=== PATIENT | male | born 1990 | race African-American/Black ===

== ENCOUNTER 2017-06-05 19:04 | Emergency (ER) | payer OTHER ==
[2017-06-05 19:10] VITALS: BP 141/70; PULSE 104; RESP 20; TEMP 98.8
--- NOTE | 2017-06-05 20:42 | ED ---
General Adult HPI - General Chief complaint: Skin/Abscess/Foreign Body Stated complaint: bug bite Time Seen by Provider: 06/05/17 19:10 Source: patient, RN notes reviewed Mode of arrival: ambulatory Limitations: no limitations - History of Present Illness Initial comments: This is a 27 her old male who presents to the emergency department with a raised hard area on the right buttocks. Patient states it started as a small bump on Tuesday and has gotten progressively worse until today where it is much larger and much harder and more painful. Patient denies any fever. Patient denies any erythematous skin. Patient denies any cuts to that area. Patient denies shaving that area. Patient states she's not had this before. Patient denies any history of MRSA. - Related Data Previous Rx's Medication Instructions Recorded Sulfamethox-Tmp 800-160Mg [Bactrim 2 each PO Q12HR #40 tab 06/05/17 DS 800-160 mg] Allergies Allergy/AdvReac Type Severity Reaction Status Date / Time Iodinated Contrast- Oral and Allergy Unknown Verified 06/05/17 20:20 IV Dye Review of Systems ROS Statement: Those systems with pertinent positive or pertinent negative responses have been documented in the HPI. ROS Other: All systems not noted in ROS Statement are negative. Past Medical History Past Medical History: No Reported History Additional Past Medical History / Comment(s): kidney stones History of Any Multi-Drug Resistant Organisms: MRSA Date of last positivie culture/infection: 10/08/2015 MDRO Source:: AXILLA LEFT Past Surgical History: Hernia Repair Additional Past Surgical History / Comment(s): hernia repair x2 Past Psychological History: No Psychological Hx Reported Smoking Status: Current every day smoker Past Alcohol Use History: Occasional Past Drug Use History: None Reported General Exam - General Exam Comments Initial Comments: GENERAL Patient is well-developed and well-nourished. Patient is in mild distress. EYES Patient's pupils are equal and round. Extraocular motion is intact SKIN There is an abscess on the medial aspect of the left buttocks NEURO The patient is alert and oriented 3 PYSCH Patient has normal interpersonal interactions. MUSCULOSKELETAL Limitations: no limitations Course Vital Signs 06/05/17 19:09 Temperature 98.8 F Pulse Rate 104 H Respiratory 20 Rate Blood Pressure 141/70 O2 Sat by Pulse 99 Oximetry Procedures - Incision & Drainage Consent Obtained: verbal consent Time Out Performed?: Yes Site: buttock, other Anesthetic Used: lidocaine 1% I&D Cleaning Method: Chloroprep Sterile Field Used?: Yes Scalpel Used: #11 Irrigation Performed?: Yes I&D Drainage Obtained: Pus Culture Obtained?: No Complications: pain, bleeding Patient Tolerated Procedure: well Disposition Clinical Impression: Abscess of buttock Disposition: HOME SELF-CARE Condition: Good Instructions: Abscess Incision and Drainage (ED) Prescriptions: Sulfamethox-Tmp 800-160Mg [Bactrim DS 800-160 mg] 2 each PO Q12HR #40 tab Referrals: Isael Godwin MD [Primary Care Provider] - 1-2 days Time of Disposition: 20:42
== END 2017-06-05 20:48 | disposition home or self-care (01) ==
LOC: EC 19:04
DX: L02.31 Cutaneous abscess of buttock (principal); F17.200 Nicotine dependence, unspecified, uncomplicated; Z91.041 Radiographic dye allergy status
CPT/HCPCS: 10060; 99282

== ENCOUNTER 2020-11-23 16:51 | Emergency (ER) | payer OTHER ==
[2020-11-23 16:57] VITALS: BP 117/72; PULSE 85; RESP 20; TEMP 98.7
--- NOTE | 2020-11-23 17:18 | ED ---
ENT HPI - General Chief complaint: ENT Stated complaint: Throat infection Time Seen by Provider: 11/23/20 16:57 Source: patient Mode of arrival: ambulatory Limitations: no limitations - History of Present Illness Initial comments: Patient is a 30-year-old male presenting to the emergency Department with complaints of a sore throat over the past week. Patient states he noticed that his lymph nodes on either side were also slightly enlarged. He denies any fever or chills, no nasal congestion, no ear pain, no abdominal pain or nausea or vomiting. No chest pain, shortness of breath, no trouble breathing. Patient states his regular doctor moved to [place] so he does not have a current PCP. He has no pertinent past medical history, takes no medications. He has no further complaints at this time. Upon arrival to the ER, his vital signs are stable. - Related Data Previous Rx's Medication Instructions Recorded Sulfamethox-Tmp 800-160Mg [Bactrim 2 each PO Q12HR #40 tab 06/05/17 DS 800-160 mg] Amoxicillin 500 mg PO BID 7 Days #14 capsule 11/23/20 Allergies Allergy/AdvReac Type Severity Reaction Status Date / Time Iodinated Contrast Media Allergy Unknown Verified 11/23/20 16:57 [Iodinated Contrast- Oral and IV Dye] Review of Systems ROS Statement: Those systems with pertinent positive or pertinent negative responses have been documented in the HPI. ROS Other: All systems not noted in ROS Statement are negative. Past Medical History Past Medical History: No Reported History Additional Past Medical History / Comment(s): kidney stones History of Any Multi-Drug Resistant Organisms: MRSA Date of last positivie culture/infection: 10/08/2015 MDRO Source:: AXILLA LEFT Past Surgical History: Hernia Repair Additional Past Surgical History / Comment(s): hernia repair x2 Past Psychological History: No Psychological Hx Reported Smoking Status: Never smoker Past Alcohol Use History: Occasional Past Drug Use History: Marijuana General Exam - General Exam Comments Initial Comments: GENERAL: Patient is well-developed and well-nourished. Patient is nontoxic and in no acute distress. HEAD: Atraumatic, normocephalic. EYES: Pupils equal round and reactive to light, extraocular movements intact, sclera anicteric, conjunctiva are normal. Eyelids were unremarkable. ENT: TMs normal, nares patent, oropharynx clear without exudates, no tonsillar enlargement. Moist mucous membranes. NECK: Normal range of motion. Patient has bilateral anterior cervical lymph node enlargement, no tenderness, no overlying erythema. LUNGS: Unlabored respirations. Breath sounds clear to auscultation bilaterally and equal. No wheezes rales or rhonchi. HEART: Regular rate and rhythm without murmurs, rubs or gallops. ABDOMEN: Soft, nontender, normoactive bowel sounds. No guarding, no rebound. No masses appreciated. : Deferred MUSCULOSKELETAL: Normal extremities with adequate strength and normal range of motion, no pitting or edema. No clubbing or cyanosis. NEUROLOGICAL: Patient is alert and oriented x 3. Motor and sensory are also intact. Cranial nerves II through XII grossly intact. Symmetrical smile. Normal speech, normal gait. PSYCH: Normal mood, normal affect. SKIN: Warm, Dry, normal turgor, no rashes or lesions noted. Limitations: no limitations Course Vital Signs 11/23/20 16:55 Temperature 98.7 F Pulse Rate 85 Respiratory 20 Rate Blood Pressure 117/72 O2 Sat by Pulse 99 Oximetry Medical Decision Making - Medical Decision Making Patient is a 30-year-old male presenting with a sore throat for the past week. He does have some anterior cervical lymph node enlargement bilaterally. Rest of exam is unremarkable. He has no fevers, his vital signs are stable. Patient has no pertinent past medical history. I discussed with patient and we can start him on a short course of antibiotics for possible bacterial source. Otherwise recommend following up with his PCP. Recommend ibuprofen for discomfort and swelling. Patient is stable for discharge. Patient is in agreement with this plan of care. Return parameters were discussed with the patient and they verbalized understanding. Case discussed with Dr. Tran. Disposition Clinical Impression: Sore throat, Lymphadenopathy Disposition: HOME SELF-CARE Condition: Stable Instructions (If sedation given, give patient instructions): Lymphadenopathy (ED) Additional Instructions: Please return to the Emergency Department if symptoms worsen or any other concerns. Take antibiotic as prescribed. Recommend continuing with ibuprofen for swelling and discomfort. Follow-up with your regular care physician. Prescriptions: Amoxicillin 500 mg PO BID 7 Days #14 capsule Is patient prescribed a controlled substance at d/c from ED?: No Referrals: None,Stated [Primary Care Provider] - 1-2 days Pilar Hardy MD [STAFF PHYSICIAN] - 1-2 days Shiraz Paige [STAFF PHYSICIAN] - 1-2 days Javier Butcher MD [STAFF PHYSICIAN] - 1-2 days
== END 2020-11-23 17:35 | disposition home or self-care (01) ==
LOC: EC 16:51
DX: J02.9 Acute pharyngitis, unspecified (principal); Z91.041 Radiographic dye allergy status; Z86.14 Personal history of Methicillin resistant Staphylococcus aureus infection
CPT/HCPCS: 99282

== ENCOUNTER 2020-12-31 22:07 | Emergency (ER) | payer OTHER ==
[2020-12-31 22:16] VITALS: BP 125/81; PULSE 77; RESP 18; TEMP 98.3
[2020-12-31] MEDS ORDERED: LIDOCAINE 4% CREAM 5 GM TUBE TOPICAL ONE (22:40)
[2020-12-31] MEDS ORDERED: traMADol 50 MG TAB PO STA (22:41)
[2020-12-31] MEDS ORDERED: polyethylene glycoL 3350 17 GM POWD.PACK PO STA (22:41)
[2020-12-31] MEDS ORDERED: traMADol 50 MG STARTER PACK 3 TAB BTL PO STA (22:41)
[2020-12-31] MEDS ORDERED: ACETAMINOPHEN TAB 500 MG TAB PO STA (22:42)
[2020-12-31] MEDS ORDERED: IBUPROFEN 600 MG TAB PO STA (22:42)
--- NOTE | 2020-12-31 22:44 | ED ---
Male Urogenital HPI - General Chief complaint: Urogenital Stated complaint: Male GTU Time Seen by Provider: 12/31/20 22:21 Source: patient, RN notes reviewed, old records reviewed Mode of arrival: ambulatory Limitations: no limitations - History of Present Illness Initial comments: This is a 30-year-old male DF patient Dese for evaluation regards to significant rectal pain with some occasional bleeding especially with wiping. No real history of similar thing. Patient has no other abdominal pain. No other issues no dysuria. No fevers or other complaints. Patient denies any rectal trauma MD Complaint: other (Hemorrhoids) -: days(s) Radiation: none Severity: moderate Severity scale (1-10): 6 Quality: sharp Consistency: constant Improves with: none Worsens with: bowel movement Reports: denies other symptoms - Related Data Home Medications Medication Instructions Recorded Confirmed Silvia's Hair Supplement 1 cap PO DAILY 12/31/20 12/31/20 Previous Rx's Medication Instructions Recorded Hydrocortisone [Anusol-Hc] 1 applic RECTAL BID #1 tube 12/31/20 polyethylene glycoL 3350 [Miralax] 17 gm PO DAILY #14 packet 12/31/20 Allergies Allergy/AdvReac Type Severity Reaction Status Date / Time Iodinated Contrast Media Allergy Anaphylaxis Verified 12/31/20 22:48 [Iodinated Contrast- Oral and IV Dye] Review of Systems ROS Statement: Those systems with pertinent positive or pertinent negative responses have been documented in the HPI. ROS Other: All systems not noted in ROS Statement are negative. Past Medical History Past Medical History: No Reported History Additional Past Medical History / Comment(s): kidney stones History of Any Multi-Drug Resistant Organisms: MRSA Date of last positivie culture/infection: 10/08/2015 MDRO Source:: AXILLA LEFT Past Surgical History: Hernia Repair Additional Past Surgical History / Comment(s): hernia repair x2 Past Psychological History: No Psychological Hx Reported Smoking Status: Never smoker Past Alcohol Use History: None Reported Past Drug Use History: None Reported General Exam Limitations: no limitations General appearance: alert, in no apparent distress Head exam: Present: atraumatic, normocephalic, normal inspection Eye exam: Present: normal appearance, PERRL, EOMI. Absent: scleral icterus, conjunctival injection, periorbital swelling ENT exam: Present: normal exam, mucous membranes moist Neck exam: Present: normal inspection. Absent: tenderness, meningismus, lymphadenopathy Respiratory exam: Present: normal lung sounds bilaterally. Absent: respiratory distress, wheezes, rales, rhonchi, stridor Cardiovascular Exam: Present: regular rate, normal rhythm, normal heart sounds. Absent: systolic murmur, diastolic murmur, rubs, gallop, clicks GI/Abdominal exam: Present: soft, normal bowel sounds. Absent: distended, tenderness, guarding, rebound, rigid Rectal exam: Present: hemorrhoids Extremities exam: Present: normal inspection, full ROM, normal capillary refill. Absent: tenderness, pedal edema, joint swelling, calf tenderness Back exam: Present: normal inspection Neurological exam: Present: alert, oriented X3, CN II-XII intact Psychiatric exam: Present: normal affect, normal mood Skin exam: Present: warm, dry, intact, normal color. Absent: rash Course Vital Signs 12/31/20 22:10 Temperature 98.3 F Pulse Rate 77 Respiratory 18 Rate Blood Pressure 125/81 O2 Sat by Pulse 98 Oximetry - Reevaluation(s) Reevaluation #1: Medical record is reviewed Patient no distress here in the ER is improved Spoke with patient regarding findings, questions are answered Medical Decision Making - Medical Decision Making 30 male to the ER no significant current bleeding, pain is improved here with treatment in the ER can be discharged home for evaluation, patient having significant pain. Positive hemorrhoids. Disposition Clinical Impression: Hemorrhoids Disposition: HOME SELF-CARE Condition: Good Instructions (If sedation given, give patient instructions): Hemorrhoids (ED) Prescriptions: Hydrocortisone [Anusol-Hc] 1 applic RECTAL BID #1 tube polyethylene glycoL 3350 [Miralax] 17 gm PO DAILY #14 packet Is patient prescribed a controlled substance at d/c from ED?: No Referrals: Isael Godwin MD [Primary Care Provider] - 1-2 days
== END 2020-12-31 23:10 | disposition home or self-care (01) ==
LOC: EC 22:07
DX: K64.9 Unspecified hemorrhoids (principal); Z87.442 Personal history of urinary calculi
CPT/HCPCS: 99283

== ENCOUNTER 2021-01-15 06:58 | Emergency (ER) | payer OTHER ==
[2021-01-15 07:06] VITALS: BP 123/82; PULSE 68; RESP 18; TEMP 97.8
--- NOTE | 2021-01-15 07:34 | ED ---
General Adult HPI - General Chief complaint: GI Bleed Stated complaint: Hemorrhoids Time Seen by Provider: 01/15/21 07:10 Source: patient, RN notes reviewed Mode of arrival: ambulatory Limitations: no limitations - History of Present Illness Initial comments: 30-year-old male presents emergency Department with chief complaint of rectal bleeding. Patient states she was seen here recently diagnosed with internal hemorrhoids. Patient states she's been using his Anusol states that it has not improved yet. Patient states he saw a little bit more bouts morning which became worrisome. Has no mental abdominal pain dizziness chest pain shortness of breath fatigue. Patient has no history of GI disorders. Patient states been having regular bowel movements. No dysuria no hematuria - Related Data Home Medications Medication Instructions Recorded Confirmed Silvia's Hair Supplement 1 cap PO DAILY 12/31/20 12/31/20 Previous Rx's Medication Instructions Recorded Hydrocortisone [Anusol-Hc] 1 applic RECTAL BID #1 tube 12/31/20 polyethylene glycoL 3350 [Miralax] 17 gm PO DAILY #14 packet 12/31/20 Hydrocortisone/Pramoxine 1 applic RECTAL BID #1 bottle 01/15/21 [Proctofoam-Hc 1%-1% Foam] Allergies Allergy/AdvReac Type Severity Reaction Status Date / Time Iodinated Contrast Media Allergy Anaphylaxis Verified 01/15/21 07:06 [Iodinated Contrast- Oral and IV Dye] Review of Systems ROS Statement: Those systems with pertinent positive or pertinent negative responses have been documented in the HPI. ROS Other: All systems not noted in ROS Statement are negative. Past Medical History Past Medical History: No Reported History Additional Past Medical History / Comment(s): kidney stones History of Any Multi-Drug Resistant Organisms: MRSA Date of last positivie culture/infection: 10/08/2015 MDRO Source:: AXILLA LEFT Past Surgical History: Hernia Repair Additional Past Surgical History / Comment(s): hernia repair x2 Past Psychological History: No Psychological Hx Reported Smoking Status: Never smoker Past Alcohol Use History: Occasional Past Drug Use History: None Reported General Exam Limitations: no limitations General appearance: alert, in no apparent distress Head exam: Present: atraumatic, normocephalic, normal inspection Neck exam: Present: normal inspection, full ROM. Absent: tenderness, meningismus, lymphadenopathy Respiratory exam: Present: normal lung sounds bilaterally. Absent: respiratory distress, wheezes, rales, rhonchi, stridor Cardiovascular Exam: Present: regular rate, normal rhythm, normal heart sounds. Absent: systolic murmur, diastolic murmur, rubs, gallop, clicks GI/Abdominal exam: Present: soft, normal bowel sounds. Absent: distended, tenderness, guarding, rebound, rigid Rectal exam: Present: other (There is noted in all fissure, no active bleeding mild tenderness exam performed with RN) Course Vital Signs 01/15/21 06:59 Temperature 97.8 F Pulse Rate 68 Respiratory 18 Rate Blood Pressure 123/82 O2 Sat by Pulse 98 Oximetry Medical Decision Making - Medical Decision Making Patient has noted anal fissure along with internal hemorrhoids. Patient will be given Proctofoam will continue x-ray and will use Tucks pads will follow-up with surgery if no improvement. Disposition Clinical Impression: Internal hemorrhoids, Anal fissure Disposition: HOME SELF-CARE Condition: Stable Instructions (If sedation given, give patient instructions): Hemorrhoids (ED) Additional Instructions: Please return to the Emergency Department if symptoms worsen or any other concerns. Prescriptions: Hydrocortisone/Pramoxine [Proctofoam-Hc 1%-1% Foam] 1 applic RECTAL BID #1 bottle Is patient prescribed a controlled substance at d/c from ED?: No Referrals: Isael Godwin MD [Primary Care Provider] - 1-2 days Sally Goff MD [STAFF PHYSICIAN] - 1-2 days Time of Disposition: 07:33
== END 2021-01-15 07:46 | disposition home or self-care (01) ==
LOC: EC 06:58
DX: K64.8 Other hemorrhoids (principal); K60.2 Anal fissure, unspecified
CPT/HCPCS: 99284

== ENCOUNTER → 2021-04-13 | Outpatient (CLI) | payer OTHER ==
[2021-04-13 20:30] LABS: HCT 44.2 % (39.6-50.0); HGB 14.6 g/dL (13.0-17.0); MCH 30.7 pg (27.0-32.0); MCV 93.1 fL (80.0-97.0); Mean Platelet Volume 12.5 fL (9.5-12.2); Platelet Count 190 X 10*3/uL (140-440); RBC 4.75 X 10*6/uL (4.40-5.60); RDW 12.4 % (11.5-14.5)
[2021-04-13 23:34] LABS: Mumps Virus IgG Ab Interp NEGATIVE (NEGATIVE); Mumps Virus IgG Antibody 0.6 AI
[2021-04-14 02:42] LABS: HIV 2 AB Non-Reactive (Non-Reactive); HIV AB P24 REACTIVE (Non-Reactive); HIV P24 AG Non-Reactive (Non-Reactive)
[2021-04-14 12:17] LABS: T Helper Cell (CD4) 92 cell/ul (443-1471); T Helper Cell (CD4) % 7 % (35-66); T Suppressor Cell (CD8) 942 cell/ul (190-832); T Suppressor Cell (CD8) % 72 % (9-37); T4/T8 Ratio (CD4:CD8) <0.1 (1.0-3.7)
[2021-04-15 22:03] LABS: Mumps Virus IgM Antibody 0.52 IV (<=0.79)
[2021-04-16 06:45] LABS: HIV1D REACTIVE
[2021-04-16 06:46] LABS: HIV2D NONREAC
== END | disposition home or self-care (01) ==
LOC: LABWHC1 13:39
PROVIDERS: ATTEND Internal Medicine
DX: B20 Human immunodeficiency virus [HIV] disease (principal); R59.1 Generalized enlarged lymph nodes
CPT/HCPCS: 36415; 82150; 85027; 86308; 86360; 86644; 86645; 86735; 87389; 87390

== ENCOUNTER 2022-04-29 08:17 | Emergency (ER) | payer OTHER ==
[2022-04-29 08:21] VITALS: BP 113/70; PULSE 67; RESP 20; TEMP 98
[2022-04-29] MEDS ORDERED: TOBRAMYCIN 0.3% OPHTH DROPS 5 ML BTL RIGHT EYE STA (08:32)
--- NOTE | 2022-04-29 08:36 | ED ---
Eye Problem HPI - General Chief complaint: Eye Problems Stated complaint: Rt Eye Problem Time Seen by Provider: 04/29/22 08:26 Source: patient, RN notes reviewed Mode of arrival: ambulatory Limitations: no limitations - History of Present Illness Initial comments: This a 32-year-old male presents emergency Department chief complaint right eye drainage. Patient states that it's felt scratchy states he woke up with crusting, drainage from his right eye. Denies any ocular pain with movement or any visual disturbance. Denies any foreign body sensation. Patient states that it's just a scratchy there is no severe pain no light sensitivity. Patient does were classes no contact lens wearing. Patient offers no other complaints. - Related Data Home Medications Medication Instructions Recorded Confirmed Silvia's Hair Supplement 1 cap PO DAILY 12/31/20 12/31/20 Previous Rx's Medication Instructions Recorded Hydrocortisone [Anusol-Hc] 1 applic RECTAL BID #1 tube 12/31/20 polyethylene glycoL 3350 [Miralax] 17 gm PO DAILY #14 packet 12/31/20 Hydrocortisone/Pramoxine 1 applic RECTAL BID #1 bottle 01/15/21 [Proctofoam-Hc 1%-1% Foam] Allergies Allergy/AdvReac Type Severity Reaction Status Date / Time Iodinated Contrast Media Allergy Anaphylaxis Verified 04/29/22 08:21 [Iodinated Contrast- Oral and IV Dye] Review of Systems ROS Statement: Those systems with pertinent positive or pertinent negative responses have been documented in the HPI. ROS Other: All systems not noted in ROS Statement are negative. Past Medical History Past Medical History: No Reported History Additional Past Medical History / Comment(s): kidney stones History of Any Multi-Drug Resistant Organisms: MRSA Date of last positivie culture/infection: 10/08/2015 MDRO Source:: AXILLA LEFT Past Surgical History: Hernia Repair Additional Past Surgical History / Comment(s): hernia repair x2 Past Psychological History: No Psychological Hx Reported Smoking Status: Never smoker Past Alcohol Use History: Occasional Past Drug Use History: None Reported General Exam Limitations: no limitations General appearance: alert, in no apparent distress Head exam: Present: atraumatic, normocephalic, normal inspection Eye exam: Present: PERRL, EOMI, conjunctival injection (Right), other (There is purulent drainage from the right eye, there is no periorbital tenderness or swelling noted no erythema.). Absent: normal appearance, scleral icterus, periorbital swelling, periorbital tenderness ENT exam: Present: normal exam, normal oropharynx, mucous membranes moist Neck exam: Present: normal inspection, full ROM. Absent: tenderness, meningismus, lymphadenopathy Respiratory exam: Present: normal lung sounds bilaterally. Absent: respiratory distress, wheezes, rales, rhonchi, stridor Course Vital Signs 04/29/22 08:18 Temperature 98.0 F Pulse Rate 67 Respiratory 20 Rate Blood Pressure 113/70 O2 Sat by Pulse 100 Oximetry Medical Decision Making - Medical Decision Making 32-year-old male presented for right eye irritation. Patient has right eye conjunctivitis. Patient we given Tobrex eyedrops 1 drop every 4 hours for 7 days. Patient does not have any periorbital symptoms no visual disturbances. Patient will have recheck within 48 hours return for any worsening change in symptoms. Disposition Clinical Impression: Bacterial conjunctivitis Disposition: HOME SELF-CARE Condition: Stable Instructions (If sedation given, give patient instructions): Conjunctivitis (ED) Additional Instructions: Please use Tobrex eyedrops 1 drop every 4 hours for the next 7 days. Please return to the Emergency Department if symptoms worsen or any other concerns. Is patient prescribed a controlled substance at d/c from ED?: No Referrals: Angelina Alvares MD [Primary Care Provider] - 1-2 days Time of Disposition: 08:36
== END 2022-04-29 08:44 | disposition home or self-care (01) ==
LOC: EC 08:17
DX: H10.9 Unspecified conjunctivitis (principal); Z91.041 Radiographic dye allergy status
CPT/HCPCS: 99283